=== PATIENT | female | born 1945 | race Caucasian/White ===

== ENCOUNTER 2017-06-13 14:27 | Outpatient (CLI) | payer MEDICARE ==
[2017-06-13 15:20] LABS: BASOPHILS % (AUTO) 0.9 %; EOSINOPHILS # (AUTO) 0.2 10^3/uL (0.0-0.7); EOSINOPHILS % (AUTO) 4.3 %; HGB - HEMOGLOBIN 13.1 g/dL (12.0-16.0); LYMPHOCYTES # (AUTO) 1.3 10^3/uL (1.5-3.5); LYMPHOCYTES % (AUTO) 28.3 %; MEAN CORPUSCULAR HEMOGLOBIN 28.2 pg (27.0-31.0); MEAN CORPUSCULAR HGB CONC 32.8 g/dL (32.0-36.0); MEAN CORPUSCULAR VOLUME 85.8 fL (81.0-99.0); MEAN PLATELET VOLUME 8.4 fL (7.9-10.8); MONOCYTES # (AUTO) 0.4 10^3/uL (0.0-1.0); MONOCYTES % (AUTO) 8.5 %; NEUTROPHILS # (AUTO) 2.7 10^3/uL (1.5-6.6); PLT - PLATELET COUNT 184 10^3/uL (130-450); RED BLOOD COUNT 4.64 10^6/uL (4.20-5.40); WHITE BLOOD COUNT 4.7 x10^3/uL (4.8-10.8)
[2017-06-13 15:36] LABS: HB2 TOTAL 14.4 g/dL; HEMOGLOBIN A1C 0.53 g/dL; HEMOGLOBIN A1C % 5.5 % (4.6-6.2)
[2017-06-13 15:42] LABS: CREATININE,URINE 82.7 mg/dL; PROTEIN/CREATININE RATIO,URINE 0.1 (<=0.2)
[2017-06-13 15:56] LABS: ALBUMIN 4.2 g/dL (3.2-5.5); ALBUMIN/GLOBULIN RATIO 1.3 (1.0-2.2); ALKALINE PHOSPHATASE 51 IU/L (42-121); ALT ALANINE AMINOTRANSFERASE 10 IU/L (10-60); AST ASPARTATE AMINOTRANSFERASE 15 IU/L (10-42); BILIRUBIN,TOTAL 0.7 mg/dL (0.2-1.0); BUN - BLOOD UREA NITROGEN 22 mg/dL (6-20); CALCIUM 10.1 mg/dL (8.5-10.3); CARBON DIOXIDE - CO2 22 mmol/L (21-32); CHLORIDE 107 mmol/L (101-111); CHOL/HDL RATIO 2.9 (<4.4); CHOLESTEROL 185 mg/dL; CREATININE 0.6 mg/dL (0.4-1.0); GFR - MDRD 99 (>89); GLUCOSE 96 mg/dL (70-100); HDL CHOLESTEROL 63 mg/dL; LDL CHOLESTEROL,CALCULATED 110 mg/dL; LDL/HDL RATIO 1.7 (<4.4); SODIUM 138 mmol/L (135-145); TOTAL PROTEIN 7.5 g/dL (6.7-8.2); VLDL CHOLESTEROL 12 mg/dL
[2017-06-13 16:17] LABS: THYROID STIMULATING HORMONE 0.8 uIU/mL (0.34-5.60)
[2017-06-14 15:27] LABS: HEPATITIS C ANTIBODY NON-REACTIVE (NON-REACTIVE)
== END 2017-06-13 14:28 | disposition home or self-care (01) ==
LOC: LAB 14:27
PROVIDERS: ATTEND Internal Medicine
DX: G47.33 Obstructive sleep apnea (adult) (pediatric) (principal); M19.90 Unspecified osteoarthritis, unspecified site; E11.40 Type 2 diabetes mellitus with diabetic neuropathy, unspecified; Z79.899 Other long term (current) drug therapy; Z86.19 Personal history of other infectious and parasitic diseases
CPT/HCPCS: 36415; 80053; 80061; 82570; 82607; 83036; 83721; 84156; 84443; 85025; 86803

== ENCOUNTER 2017-06-15 11:15 | Outpatient (CLI) | payer MEDICARE | END 2017-06-15 11:16 | disposition home or self-care (01) | LOC: DI 11:15 | PROVIDERS: ATTEND Internal Medicine | DX: Z53.9 Procedure and treatment not carried out, unspecified reason (principal) ==

== ENCOUNTER 2017-06-28 09:11 | Outpatient (CLI) | payer MEDICARE ==
--- NOTE | 2017-06-28 11:41 | Ultrasound Report ---
ULTRASOUND OF RIGHT NECK: 06/28/2017 CLINICAL INDICATION: Palpable abnormality at jaw line. TECHNIQUE: Real-time scanning was performed with outbound telemarketing representative static images obtained. FINDINGS: Ultrasound of the palpable abnormality identified by the patient was performed. At this site, there is an 1.1 x 0.8 x 0.7 cm lymph node, demonstrating abnormal thickened cortex and obliteration of the fatty hilum. The appearance is suspicious. Neck CT with contrast is recommended to evaluate for extent and possible primary lesion. IMPRESSION: ABNORMAL LYMPH NODE CORRELATING WITH THE PALPABLE ABNORMALITY IN THE RIGHT UPPER NECK. NECK CT WITH CONTRAST IS RECOMMENDED FOR FURTHER EVALUATION. TD: 06/28/2017 11:39
== END 2017-06-28 09:12 | disposition home or self-care (01) ==
LOC: DI 09:11
PROVIDERS: ATTEND Internal Medicine
DX: R22.0 Localized swelling, mass and lump, head (principal)
CPT/HCPCS: 76536

== ENCOUNTER 2017-07-24 11:13 | Outpatient (CLI) | payer MEDICARE ==
[2017-07-24] MEDS ORDERED: LIDOCAINE 1% 50 ML MDV TD ONE (12:41)
--- NOTE | 2017-07-24 13:06 | Ultrasound Report ---
ULTRASOUND-GUIDED FINE NEEDLE ASPIRATION OF RIGHT SUBMANDIBULAR LYMPH NODE: 07/24/2017 CLINICAL INDICATION: Enlarged lymph node. TECHNIQUE/FINDINGS: Following obtaining informed consent, the patient's right neck was prepped and draped in the usual sterile fashion. The skin and soft tissues were anesthetized with lidocaine. Under ultrasound guidance, four 22-gauge fine needle aspirations were performed. Needle washings were submitted to cytology in RPMI. The patient tolerated the procedure well. No immediate complications. IMPRESSION: SUCCESSFUL FINE NEEDLE ASPIRATION OF RIGHT SUBMANDIBULAR LYMPH NODE. AWAIT PATHOLOGY REPORT. TD: 07/24/2017 13:06
== END 2017-07-24 11:14 | disposition home or self-care (01) ==
LOC: DI 11:13
PROVIDERS: ATTEND Surgery
DX: R59.1 Generalized enlarged lymph nodes (principal)
CPT/HCPCS: 10022; 76942

== ENCOUNTER 2017-11-06 16:14 | Outpatient (CLI) | payer MEDICARE | END 2017-11-06 16:15 | disposition critical access hospital (66) | LOC: EMS 16:14 | PROVIDERS: ATTEND Surgery | DX: R55 Syncope and collapse (principal) | CPT/HCPCS: A0425; A0429 ==

== ENCOUNTER 2017-11-06 16:17 | Emergency (ER) | payer MEDICARE ==
[2017-11-06] MEDS ORDERED: SODIUM CHLORIDE 0.9% 1,000 ML IV ONE ×2 (16:36)
--- NOTE | 2017-11-06 16:41 | ED Physician Documentation ---
History of Present Illness - Stated complaint Stated Complaint: SYNCOPE - Chief complaint Chief Complaint: Neuro - History obtained from History obtained from: Patient, EMS - History of Present Illness Timing: Today Pain level max: 0 Pain level now: 0 Improved by: rest Worsened by: standing - Additonal information Additional information: Patient is a 72-year-old female who presents to the emergency department after a syncopal event at the ophthalmologists office today. Occurred while she was receiving intraocular injections of Avastin. States she is passed out several times in her life, starting at age 7. She did not eat or drink this morning. States she currently feels tired. Review of Systems Ten Systems: 10 systems reviewed and negative Constitutional: denies: Fever, Chills Ears: denies: Ear pain Nose: denies: Rhinorrhea / runny nose, Congestion Respiratory: denies: Cough GI: denies: Abdominal Pain, Nausea, Vomiting, Diarrhea Skin: denies: Rash Musculoskeletal: denies: Neck pain, Back pain Neurologic: reports: Syncope. denies: Focal weakness, Numbness, Headache PD PAST MEDICAL HISTORY - Past Medical History Past Medical History: Yes HEENT: Macular degeneration Other Past Medical History: syncope, cervical cancer - Present Medications Home Medications: Ambulatory Orders Medication Instructions Recorded Confirmed Aspirin 81 mg PO 11/06/17 B Complex with Vitamin C [Vitamin 1 each PO 11/06/17 B-Complex with Vit C] - Allergies Allergies/Adverse Reactions: Allergies Allergy/AdvReac Type Severity Reaction Status Date / Time bee venom protein (honey bee) Allergy Anaphylaxis Verified 11/06/17 16:38 - Living Situation Living Arrangement: reports: At home - Social History Does the pt smoke?: No Does the pt have substance abuse?: No PD ED PE NORMAL - Vitals Vital signs reviewed: Yes - General General: Alert and oriented X 3, No acute distress - HEENT HEENT: PERRL, Moist mucous membranes - Neck Neck: Supple, no meningeal sign, No JVD, No bruit - Cardiac Cardiac: RRR, Strong equal pulses - Respiratory Respiratory: No respiratory distress, Clear bilaterally - Abdomen Abdomen: Soft, Non tender, Non distended - Derm Derm: Warm and dry - Extremities Extremities: No edema, No calf tenderness / cord - Neuro Neuro: Alert and oriented X 3 - Psych Psych: Normal mood, Normal affect Results - Vitals Vitals: Vital Signs - 24 hr 11/06/17 11/06/17 16:21 17:51 Temperature 36.4 C L 36.5 C Heart Rate 55 L 58 L Respiratory 12 10 L Rate Blood Pressure 104/32 L 113/52 L O2 Saturation 100 100 Oxygen O2 Source Room air - EKG (time done) 1719 Rate: Rate (enter#) (55) Rhythm: NSR [place]: Normal Intervals: 1st degree AVB QRS: Normal Ischemia: Normal ST segments, Other (early R wave transition) Computer interpretation: Agree with computer - Labs Labs: Laboratory Tests 11/06/17 11/06/17 17:00 17:01 WBC 6.9 RBC 4.23 Hgb 11.8 L Hct 36.8 L MCV 87.1 MCH 28.0 MCHC 32.1 RDW 14.4 Plt Count 231 MPV 7.7 L Neut # (Auto) 5.1 Lymph # (Auto) 1.2 L [place] # (Auto) 0.5 Eos # (Auto) 0.1 Baso # (Auto) 0.0 Absolute Nucleated RBC 0.00 Band Neuts % (Manual) Not Reportable Abnorm Lymph % (Manual) Not Reportable Nucleated RBC % 0.0 Neutrophils # (Manual) Not Reportable Lymphocytes # (Manual) Not Reportable Monocytes # (Manual) Not Reportable Eosinophils # (Manual) Not Reportable Basophils # (Manual) Not Reportable Differential Comment MANUAL=AUTO DIFF Sodium 138 Potassium 3.8 Chloride 105 Carbon Dioxide 23 Anion Gap 10.0 BUN 17 Creatinine 0.7 Estimated GFR (MDRD) 83 L Glucose 115 H Calcium 10.0 Total Bilirubin 0.6 AST 13 ALT 11 Alkaline Phosphatase 52 Total Protein 6.6 L Albumin 3.5 Globulin 3.1 Albumin/Globulin Ratio 1.1 Lipase 37 PD MEDICAL DECISION MAKING - ED course Complexity details: reviewed results, re-evaluated patient, considered differential, d/w patient, d/w family ED course: Patient is a 72-year-old female who apparently had a vasovagal syncopal event today while receiving intraocular injections. She states it is not uncommon for her to pass out. Denies any chest pain, shortness of breath or palpitations. No acute findings on EKG. Feels better after IV fluids and eating in the emergency department. We will continue supportive care and have her follow-up with her doctor. Patient and family counseled regarding signs and symptoms for which I believe and urgent re-evaluation would be necessary. Patient with good understanding of and agreement to plan and is comfortable going home at this time This document was made in part using voice recognition software. While efforts are made to proofread this document, sound alike and grammatical errors may occur. - Sepsis Event Vital Signs: Vital Signs - 24 hr 11/06/17 11/06/17 16:21 17:51 Temperature 36.4 C L 36.5 C Heart Rate 55 L 58 L Respiratory 12 10 L Rate Blood Pressure 104/32 L 113/52 L O2 Saturation 100 100 Oxygen O2 Source Room air Departure - Departure Disposition: 01 Home, Self Care Clinical Impression: Vasovagal syncope Condition: Good Instructions: ED Syncope Vasovagal Follow-Up: Rosina Saeed MD [Primary Care Provider] - Within 1 week Comments: Rest today, drink plenty of fluids at home. Return if you worsen. Discharge Date/Time: 11/06/17 18:05
[2017-11-06 17:05] LABS: BASOPHILS % (AUTO) 0.5 %; EOSINOPHILS # (AUTO) 0.1 10^3/uL (0.0-0.7); EOSINOPHILS % (AUTO) 2.1 %; HGB - HEMOGLOBIN 11.8 g/dL (12.0-16.0); LYMPHOCYTES # (AUTO) 1.2 10^3/uL (1.5-3.5); LYMPHOCYTES % (AUTO) 17.3 %; MEAN CORPUSCULAR HGB CONC 32.1 g/dL (32.0-36.0); MEAN CORPUSCULAR VOLUME 87.1 fL (81.0-99.0); MEAN PLATELET VOLUME 7.7 fL (7.9-10.8); MONOCYTES # (AUTO) 0.5 10^3/uL (0.0-1.0); MONOCYTES % (AUTO) 6.6 %; NEUTROPHILS # (AUTO) 5.1 10^3/uL (1.5-6.6); NEUTROPHILS % (AUTO) 73.5 %; PLT - PLATELET COUNT 231 10^3/uL (130-450); RED BLOOD COUNT 4.23 10^6/uL (4.20-5.40); RED CELL DISTRIBUTION WIDTH 14.4 % (12.0-15.0); WHITE BLOOD COUNT 6.9 x10^3/uL (4.8-10.8)
[2017-11-06 17:18] LABS: ALBUMIN 3.5 g/dL (3.2-5.5); ALBUMIN/GLOBULIN RATIO 1.1 (1.0-2.2); BILIRUBIN,TOTAL 0.6 mg/dL (0.2-1.0); CREATININE 0.7 mg/dL (0.4-1.0); TOTAL PROTEIN 6.6 g/dL (6.7-8.2)
[2017-11-06 17:25] LABS: DIFFERENTIAL COMMENT MANUAL=AUTO DIFF
[2017-11-06 17:53] VITALS: BP 113/52
== END 2017-11-06 18:05 | disposition home or self-care (01) ==
LOC: EDUNIT# → ED 16:17
DX: R55 Syncope and collapse (principal); I44.0 Atrioventricular block, first degree; Z79.82 Long term (current) use of aspirin
CPT/HCPCS: 36415; 80053; 83690; 85025; 93005; 99283; 99284

== ENCOUNTER 2018-06-06 11:28 | Outpatient (CLI) | payer MEDICARE ==
[2018-06-06 17:38] LABS: BILIRUBIN,URINE NEGATIVE (NEGATIVE); GLUCOSE, URINE (UA) NEGATIVE (NEGATIVE); KETONES,URINE (UA) NEGATIVE (NEGATIVE); LEUKOCYTE ESTERASE, URINE SMALL (NEGATIVE); NITRITE,URINE POSITIVE (NEGATIVE); OCCULT BLOOD,URINE TRACE-INTA (NEGATIVE); PH,URINE 7.5 PH (5.0-7.5); PROTEIN,URINE 30 mg/dL (NEGATIVE); UROBILINOGEN,URINE 0.2 (NORMAL) E.U./dL (NORMAL)
[2018-06-06 17:45] LABS: CLARITY,URINE HAZY (CLEAR)
[2018-06-06 17:56] LABS: BACTERIA,URINE Many /HPF (None Seen); RBC,URINE 0-5 /HPF (0-5); SQUAMOUS EPITHELIAL CELL,UR FEW Squamous (<= Few)
== END 2018-06-06 11:29 | disposition home or self-care (01) ==
LOC: LAB.F 11:28
PROVIDERS: ATTEND Internal Medicine
DX: R35.0 Frequency of micturition (principal)
CPT/HCPCS: 81001; 81003; 87086

== ENCOUNTER 2018-07-19 11:08 | Outpatient (CLI) | payer MEDICARE ==
--- NOTE | 2018-07-19 15:36 | Ultrasound Report ---
Reason: RECURRENT UTI'S Procedure Date: 07/19/2018 Accession Number: [id number] / [id number] Procedure: US - Retroperitoneal CPT Code: FULL RESULT: EXAM: RENAL ULTRASOUND EXAM DATE: 07/19/2018 12:20 PM. CLINICAL HISTORY: Recurrent UTIs. COMPARISON: XR LUMBOSACRAL SPINE 4 VIEWS 07/24/2008 5:22 PM. TECHNIQUE: Real-time scanning was performed with static images obtained. FINDINGS: Right Kidney: 10 x 4.7 x 5.4 cm. There are several anechoic simple cysts noted largest measures 1.8 cm of the posterior upper pole. Probable small parapelvic cyst formation. No solid masses. No appreciable stone or hydronephrosis. Left Kidney: 11.1 x 4.7 x 5.5 cm. 1.6 cm simple parapelvic cyst lower pole. No stones, solid masses or hydronephrosis. Bladder: Bilateral jets seen. The prevoid bladder volume was 363 cc. The postvoid bladder volume was 299 cc. Other: There is a nonspecific transverse band of hyperechogenicity of the anterior pelvic wall, deep to/paralleling a low transverse surgical incision. Area is nonvascular. IMPRESSION: 1. Large postvoiding residual of nearly 300 cc. 2. Bilateral simple renal cysts as described. No stone or hydronephrosis. 3. Nonspecific shadowing echogenic structure of the anterior pelvic wall deep to a low transverse incision, presumably related to postsurgical healing and/or surgical material. RADIA
--- NOTE | 2018-07-20 08:20 | XRAY Report ---
Reason: RECURRENT UTI'S Procedure Date: 07/19/2018 Accession Number: [id number] / [id number] Procedure: XR - Abdomen 1 View X-Ray CPT Code: 29227 FULL RESULT: EXAM: ABDOMEN RADIOGRAPHY EXAM DATE: 07/19/2018 01:05 PM. CLINICAL HISTORY: Recurrent UTIs. COMPARISON: RETROPERITONEAL 07/19/2018 11:19 AM. TECHNIQUE: 1 view. FINDINGS: Bowel Gas Pattern: Within normal limits. No dilated loops. Other: There is an 18 mm oval faint calcification superimposing over the midline 2 cm above the symphysis adjacent to a vascular clip. This finding may correspond to anterior shadowing structure noted at ultrasound possibly soft tissue calcification. There is an adjacent surgical clip. Otherwise there are no radiopaque urinary tract stones. Degenerative changes noted of the L4-L5 and L5-S1 disk spaces, as well as lower thoracic spine. IMPRESSION: 1. An 18 mm oval calcification over the midline superior to the symphysis may represent shadowing calcific structure noted at ultrasound within the anterior pelvic wall, likely related to prior surgery. 2. Otherwise no radiopaque urinary tract stones. RADIA
== END 2018-07-19 11:09 | disposition home or self-care (01) ==
LOC: DI 11:08
PROVIDERS: ATTEND Internal Medicine
DX: N39.0 Urinary tract infection, site not specified (principal); Q61.02 Congenital multiple renal cysts
CPT/HCPCS: 74018; 76770

== ENCOUNTER 2018-07-29 15:39 | Emergency (ER) | payer MEDICARE ==
[2018-07-29 16:24] LABS: BILIRUBIN,URINE NEGATIVE (NEGATIVE); GLUCOSE, URINE (UA) NEGATIVE (NEGATIVE); KETONES,URINE (UA) NEGATIVE (NEGATIVE); LEUKOCYTE ESTERASE, URINE MODERATE (NEGATIVE); NITRITE,URINE NEGATIVE (NEGATIVE); OCCULT BLOOD,URINE SMALL (NEGATIVE); PH,URINE 8.5 PH (5.0-7.5); PROTEIN,URINE >=300 mg/dL (NEGATIVE); UROBILINOGEN,URINE 0.2 (NORMAL) E.U./dL (NORMAL)
[2018-07-29 16:25] LABS: CLARITY,URINE TURBID (CLEAR)
[2018-07-29 16:26] LABS: AMORPHOUS SEDIMENT,UR Few /LPF; BACTERIA,URINE Many /HPF (None Seen); SQUAMOUS EPITHELIAL CELL,UR RARE Squamous (<= Few)
--- NOTE | 2018-07-29 16:42 | ED Physician Documentation ---
PD HPI ABD PAIN - Stated complaint Stated Complaint: FEMALE - Chief complaint Chief Complaint: Abd Pain - History obtained from History obtained from: Patient - History of Present Illness Timing - onset: Other (She remotely had cervical cancer and radiation. Over the last few months has had frequent UTIs. Has an appointment with urologist in a week but the urinary frequency is much worse today and now she feels like she cannot pee at all despite taking quite a bit of liquid. She did have a retroperitoneal ultrasound about 10 days ago showing high postvoid residual.) Review of Systems Constitutional: denies: Fever, Chills GI: reports: Abdominal Pain, Constipation. denies: Nausea, Vomiting : reports: Dysuria, Frequency, Hesitancy, Incontinent PD PAST MEDICAL HISTORY - Past Medical History Endocrine/Autoimmune: Type 2 diabetes HEENT: Macular degeneration - Past Surgical History Past Surgical History: Yes General: Appendectomy /PHOTO INTERN: Oophrectomy - Present Medications Home Medications: Ambulatory Orders Medication Instructions Recorded Confirmed Aspirin 81 mg PO 11/06/17 B Complex with Vitamin C [Vitamin 1 each PO 11/06/17 B-Complex with Vit C] Ciprofloxacin HCl [Cipro] 500 mg PO BID #20 tablet 07/29/18 - Allergies Allergies/Adverse Reactions: Allergies Allergy/AdvReac Type Severity Reaction Status Date / Time bee venom protein (honey bee) Allergy Anaphylaxis Verified 11/06/17 16:38 - Social History Does the pt smoke?: No Smoking Status: Never smoker Does the pt drink ETOH?: No Does the pt have substance abuse?: No - Immunizations Immunizations are current?: No Immunizations: TDAP >10years/unknown PD ED PE NORMAL - Vitals Vital signs reviewed: Yes - General General: Alert and oriented X 3, No acute distress - Abdomen Abdomen: Normal bowel sounds, Soft, Non tender - Rectal Rectal: Other (Rectal exam without fecal impaction) - Back Back: No CVA TTP, No spinal TTP - Extremities Extremities: No edema, No calf tenderness / cord - Neuro Neuro: Alert and oriented X 3, Normal speech Results - Vitals Vitals: Vital Signs - 24 hr 07/29/18 15:44 Temperature 36.7 C Heart Rate 85 Respiratory 18 Rate Blood Pressure 168/80 H O2 Saturation 99 Oxygen O2 Source Room air - Labs Labs: Laboratory Tests 07/29/18 07/29/18 07/29/18 15:47 16:58 16:58 WBC 8.5 RBC 4.55 Hgb 13.0 Hct 38.9 MCV 85.6 MCH 28.6 MCHC 33.4 RDW 14.6 Plt Count 178 MPV 7.7 L Neut # (Auto) 7.3 H Lymph # (Auto) 0.7 L [place] # (Auto) 0.5 Eos # (Auto) 0.0 Baso # (Auto) 0.1 Absolute Nucleated RBC 0.00 Nucleated RBC % 0.0 Sodium 138 Potassium 4.0 Chloride 107 Carbon Dioxide 20 L Anion Gap 11.0 BUN 23 H Creatinine 0.6 Estimated GFR (MDRD) 99 Glucose 138 H Calcium 10.1 Total Bilirubin 0.9 AST 19 ALT 13 Alkaline Phosphatase 57 Total Protein 7.3 Albumin 4.2 Globulin 3.1 Albumin/Globulin Ratio 1.4 Lipase 43 Urine Color YELLOW Urine Clarity TURBID Urine pH 8.5 H Ur Specific [place] <=1.005 Urine Protein >=300 H Urine Glucose (UA) NEGATIVE Urine Ketones NEGATIVE Urine Occult Blood SMALL H Urine Nitrite NEGATIVE Urine Bilirubin NEGATIVE Urine Urobilinogen 0.2 (NORMAL) Ur Leukocyte Esterase MODERATE H Urine RBC 6-10 H Urine WBC 6-10 H Ur Squamous Epith Cells RARE Squamous Amorphous Sediment Few Urine Bacteria Many H Ur Microscopic Review INDICATED Urine Culture Comments INDICATED PD MEDICAL DECISION MAKING - ED course ED course: This is a 73-year-old woman with known urinary retention based on previous retroperitoneal ultrasound presents with recurrent UTI. The urinary retention is likely causative and a Wei was placed with resolution of her pain. We will leave the Wei in place pending urology consult and she is placed on Cipro after review of previous culture data. Departure - Departure Disposition: 01 Home, Self Care Clinical Impression: Complicated UTI (urinary tract infection), Urinary retention with incomplete bladder emptying Condition: Good Record reviewed to determine appropriate education?: Yes Instructions: ED UTI Cystitis Female, Leg Bag Care Dc Prescriptions: Ciprofloxacin HCl [Cipro] 500 mg PO BID #20 tablet Comments: We will culture your urine, the results should be done in 48-72 hours. If an antibiotic change is necessary we will call you. Return if worse in the meantime, especially if you develop increasing flank pain, fevers, or cannot keep down the medication. Follow-up with urologist as scheduled.
[2018-07-29 17:02] LABS: BASOPHILS # (AUTO) 0.1 10^3/uL (0.0-0.1); BASOPHILS % (AUTO) 0.7 %; EOSINOPHILS % (AUTO) 0.5 %; LYMPHOCYTES # (AUTO) 0.7 10^3/uL (1.5-3.5); LYMPHOCYTES % (AUTO) 7.9 %; MEAN CORPUSCULAR HEMOGLOBIN 28.6 pg (27.0-31.0); MEAN CORPUSCULAR HGB CONC 33.4 g/dL (32.0-36.0); MEAN CORPUSCULAR VOLUME 85.6 fL (81.0-99.0); MEAN PLATELET VOLUME 7.7 fL (7.9-10.8); MONOCYTES # (AUTO) 0.5 10^3/uL (0.0-1.0); MONOCYTES % (AUTO) 5.4 %; NEUTROPHILS # (AUTO) 7.3 10^3/uL (1.5-6.6); NEUTROPHILS % (AUTO) 85.5 %; PLT - PLATELET COUNT 178 10^3/uL (130-450); RED BLOOD COUNT 4.55 10^6/uL (4.20-5.40); RED CELL DISTRIBUTION WIDTH 14.6 % (12.0-15.0); WHITE BLOOD COUNT 8.5 x10^3/uL (4.8-10.8)
[2018-07-29 17:14] LABS: ALBUMIN 4.2 g/dL (3.2-5.5); ALBUMIN/GLOBULIN RATIO 1.4 (1.0-2.2); BILIRUBIN,TOTAL 0.9 mg/dL (0.2-1.0); CALCIUM 10.1 mg/dL (8.5-10.3); CREATININE 0.6 mg/dL (0.4-1.0); TOTAL PROTEIN 7.3 g/dL (6.7-8.2)
[2018-07-29] MEDS ORDERED: CIPROFLOXACIN 250 MG TABLET PO STA (17:44)
[2018-07-29 18:03] VITALS: BP 121/51
== END 2018-07-29 18:26 | disposition home or self-care (01) ==
LOC: ED 15:39
DX: N39.0 Urinary tract infection, site not specified (principal); R33.9 Retention of urine, unspecified; Z85.41 Personal history of malignant neoplasm of cervix uteri; Z92.3 Personal history of irradiation; E11.9 Type 2 diabetes mellitus without complications
CPT/HCPCS: 36415; 51702; 80053; 81001; 83690; 85025; 87086; 99283; A9270; 81003